=== PATIENT | female | born 1980 | race Two or more races ===

== ENCOUNTER 2019-05-14 21:18 | Emergency (ER) | payer OTHER ==
--- NOTE | 2019-05-14 21:46 | UC ---
Cardiac HPI - HPI Summary HPI Summary: Patient is a 39 female year old , who present today to the urgent care with chest pain that started around 3:30 in the morning today. She reports that she had some headache last night and took Excedrin around 10: 30 and she woke up with chest pain on the left side in the morning today. Since then the pain has been intermittent. She thought it is acid reflux and has been taking Tums, and later she told left dizziness while she was washing her cat and that has continued to stay on without any improvement. She describes dizziness as the room spinning around, gets worse with walking and improves with sitting down laying down also makes it worse. Headache returned as well today, this is frontal and occipital headache , denies any history of migraines. Denies any nausea or vomiting. She has been keeping herself hydrated very well Denies any fevers or chills, sick contacts or any other symptoms She denies any stress - History of Current Complaint Chief Complaint: UCChestPain Stated Complaint: CHEST PAIN Time Seen by Provider: 05/14/19 21:22 Hx Obtained From: Patient Hx Last Menstrual Period: 1 WEEK AGO Pain Intensity: 5 - Allergy/Home Medications Allergies/Adverse Reactions: Allergies Allergy/AdvReac Type Severity Reaction Status Date / Time No Known Allergies Allergy Verified 05/14/19 21:37 Home Medications: Home Medications Aspirin/Acetaminophen/Caffeine [Excedrin Migraine Caplet] 1 each PO DAILY PRN [History Confirmed 05/14/19] Calcium Carbonate [Tums] 500 mg PO Q8HR PRN 05/14/19 [History Confirmed 05/14/19 ] Loratadine/Pseudoephedrine [Claritin-D 24 Hour 10-240 mg] 1 tab PO DAILY [History Confirmed 05/14/19] PMH/Surg Hx/FS Hx/Imm Hx - Additional Past Medical History Additional PMH: Past Medical History : None Past Surgical History: Left elbow surgery as a child Family History : non contributory Social History : No alcohol use, non smoker, no drug use. She works at [employer] Previously Healthy: Yes - Surgical History Surgical History: Yes Surgery Procedure, Year, and Place: LT ELBOW-ORIF A CHILD- HARDWARE HAS BEEN REMOVED - Family History Known Family History: Positive: Non-Contributory - Social History Alcohol Use: None Substance Use Type: None Smoking Status (MU): Never Smoked Tobacco Review of Systems All Other Systems Reviewed And Are Negative: Yes Constitutional: Positive: Negative Skin: Positive: Negative Eyes: Positive: Negative ENT: Positive: Negative, Other - Dizziness. Negative: Sore Throat, Ear Ache, Sinus Congestion, Sinus Pain/Tenderness Respiratory: Positive: Negative Cardiovascular: Positive: Chest Pain Gastrointestinal: Positive: Negative Genitourinary: Positive: Negative Motor: Positive: Negative Neurovascular: Positive: Negative Musculoskeletal: Positive: Negative Neurological: Positive: Headache, Other - Dizziness Psychological: Positive: Negative Is Patient Immunocompromised?: No Physical Exam - Summary Physical Exam Summary: Physical Exam: Const: Appears well. No signs of apparent distress present. Alert and oriented x 3. Musculo: Walks with a normal gait. Head/Face: Atraumatic, normocephalic on inspection. Eyes: EOMI and PERRLA in both eyes. Conjunctivae clear. No discharge noted ENT: Hearing normal, TM normal appearing bilaterally, non bulging , non erythematous . No tenderness to palpation on maxillary and frontal sinus. No pharyngeal erythema or exudates . Uvula is midline. Respiratory: Respirations are unlabored. Lungs clear to auscultation bilaterally, no wheezing , rhonchi or rales noted . Chest: Tenderness is noted at the costochondral junctions on the left side CVS: Regular rate and Rhythm, S1S2 normal , no murmurs identified. Extremities: Peripheral circulation is grossly normal. Pulses 2+ Abdomen : Soft and mild tenderness in the epigastrium, nondistended , Bowel sounds present . No guarding , rebound tenderness or rigidity noted. Skin: No lesions or rash located on the upper extremities or on the lower extremities. Neuro: Cranial nerves II to XII intact, motor and sensory intact. DTR Intact bilaterally. Mood is normal. Affect is normal. Triage Information Reviewed: Yes Vital Signs: Initial Vital Signs Temp 99.0 F 05/14/19 21:39 Pulse 74 05/14/19 21:39 Resp 18 05/14/19 21:39 BP 119/76 05/14/19 21:39 Pulse Ox 95 05/14/19 21:39 Vital Signs Reviewed: Yes Diagnostics - EKG Cardiac Rate: NL Cardiac Rhythm: Sinus: Normal Ectopy: None ST Segment: Normal Summary of EKG Findings: Normal sinus rhythm, rate in 70's, no STEMI, normal NC interval normal QRS. T-wave inversion in V1. - Assessment/Plan Course Of Treatment: During the visit today, we obtained EKG which was within normal limits . orthostatic vitals are negative for any orthostasis Suspect costochondritis along with mild gastritis as the cause of chest pain. She seems to have vertigo but it's not BPPV. She was given 1 dose of Maalox and one dose of meclizine. Upon recheck she felt little better upon the abdominal and and felt that Maalox helped the heartburn but she continued to have costochondral pain . She was given a dose of pantoprazole. Upon reevaluation she was feeling much better with the gastritis pain, she still had some headache and her chest pain felt better as well. Upon examination she did have some costochondral tenderness still present. We discussed that treatment for costochondritis is NSAIDs which is not recommended if someone has gastritis. She will continue to manage her gastritis first and if she continues to have pain tomorrow she can try meloxicam which I have prescribed to the pharmacy. She does not have a primary care physician so she will follow up with the [facility] We discussed the findings and further plan. I will prescribe the medication to the pharmacy . Patient expressed understanding . - Clinical Impression Provider Diagnosis: Costochondritis, Gastritis, Vertigo Discharge - Sign-Out/Discharge Documenting (check all that apply): Patient Departure All imaging exams completed and their final reports reviewed: No Studies - Discharge Plan Condition: Stable Disposition: HOME Prescriptions: Meclizine TAB* [Antivert 12.5 TAB*] 25 mg PO TID PRN 10 Days #30 tab PRN Reason: Vertigo Meloxicam 7.5 mg PO DAILY PRN 14 Days #14 tablet PRN Reason: Pain Omeprazole 20 mg PO DAILY 14 Days #14 capsule. Patient Education Materials: Gastritis (ED), Costochondritis (ED), Vertigo (ED) Referrals: Filiberto Gunter MD [Medical Doctor] - 1 Week No Primary Care Phys,NOPCP [Primary Care Provider] - [facility] [Outside] - 2 Days Additional Instructions: Please start taking the medication as prescribed to the pharmacy ( omeprazole, meclizine) Plan to manage her gastritis and vertigo first and if you continues to have chest pain tomorrow, she can try meloxicam which I have prescribed to the pharmacy. She does not have a primary care physician so she will follow up with the [facility] Patients blood pressure slightly high in Urgent care today , plan follow up with PCP for better control Return to Urgent care / ER if symptoms get worse. - Billing Disposition and Condition Condition: STABLE Disposition: Home
[2019-05-14] MEDS ORDERED: Al Hydrox/Mg Hydrox/Simet LIQ* 30 ML UDC PO ONE (21:56)
[2019-05-14] MEDS ORDERED: Meclizine TAB* 12.5 MG PO ONE ×2 (21:57→22:38)
[2019-05-14] MEDS ORDERED: Pantoprazole TAB * 40 MG TAB PO ONE (22:21)
[2019-05-14 22:40] VITALS: BP 131/87
== END 2019-05-14 22:48 | disposition home or self-care (01) ==
LOC: UCEAST 21:18
DX: M94.0 Chondrocostal junction syndrome [Tietze] (principal); K29.70 Gastritis, unspecified, without bleeding; R42 Dizziness and giddiness
CPT/HCPCS: 93005; 99213; A9270-GY; G0463